=== PATIENT | female | born 1945 | race Caucasian/White ===

== ENCOUNTER 2020-08-03 15:50 | Emergency (ER) | payer OTHER ==
[2020-08-03 16:42] LABS: BASOPHIL 0.2 % (0-2); EOSINOPHIL 0.1 % (0-7); HCT 46.2 % (37.0-47.0); HGB 14.8 g/dl (12.5-16.0); LYMPHOCYTE 12.5 % (15-48); MCH 28.6 pg (25.0-31.0); MCV 89.2 fL (78.0-100.0); MONOCYTE 7.6 % (0-12); MPV 10.6 fL (6.0-9.5); NEUTROPHIL 79.3 % (41-80); NRBC 0; PLT 260 K/uL (150-400); RBC 5.18 M/uL (4.20-5.40); RDW 13.5 % (11.5-14.0); WBC 14.6 K/uL (4.0-10.5)
[2020-08-03 16:53] LABS: BUN/CREAT RATIO (CALC) 19.7 RATIO; CREATININE 0.66 mg/dL (0.51-0.95); POTASSIUM 4.4 mmol/L (3.5-5.1)
[2020-08-03] MEDS ORDERED: DICLOFENAC SODI75 MG PO (17:38)
== END 2020-08-03 17:52 | disposition home or self-care (01) ==
LOC: FER 15:50
PROVIDERS: Emergency Medicine
DX: R07.89 Other chest pain (principal); I49.3 Ventricular premature depolarization; I10 Essential (primary) hypertension; Z87.891 Personal history of nicotine dependence
CPT/HCPCS: 36415; 71045; 80048; 84484; 85025; 93005; J1885